=== PATIENT | male | born 1950 | race Caucasian/White ===

== ENCOUNTER 2018-05-01 19:52 | Inpatient (IN) | payer OTHER ==
[2018-05-01 20:40] VITALS: BMI 27.4
--- NOTE | 2018-05-01 21:43 | PDOC ---
History of Present Illness - General Chief Complaint: Shortness of Breath Stated Complaint: DIFFICULTY BREATHING Time Seen by Provider: 05/01/18 21:42 History Source: Patient - History of Present Illness Initial Comments: 05/01/18 21:57 The patient is a 68 year old male with a PMH of COPD (not on home O2, currently smokes 1/2 ppd for >40 years), NIDDM, HTN, HLD, ? cardiomyopathy was BIBA for acute onset of shortness of breath. Patient was sitting at home when he suddenly felt short of breath prompting him to call 911. Denies any associated chest pain, lightheadedness, palpitations as well as fevers/chills. Patient states he had his pacemaker placed because his heart wasn't pumping blood. The patient denies abdominal pain, nausea/vomiting, diarrhea/constipation, dysuria/hematuria. NKDA Surgical: PPM Social: daily cigarettes, denies other toxic habits PMD: Dr. Espinosa Past History - Past Medical History Allergies/Adverse Reactions: Allergies Allergy/AdvReac Type Severity Reaction Status Date / Time No Known Allergies Allergy Verified 05/01/18 20:44 Home Medications: Ambulatory Orders Amlodipine Bes/Olmesartan Med [Tatiana 5-20 mg Tablet] 1 tab PO DAILY #0 tablet 02/05 Atorvastatin Ca [Lipitor] 40 mg PO HS #0 tab 08/01/11 Divalproex *ER* [Depakote *ER* -] 1,500 mg PO DAILY #0 tablet.sa 08/01/11 Esomeprazole Mag Trihydrate [Nexium] 20 mg PO DAILY #0 capsule. 08/01/11 Quetiapine Fumarate "Xr" [Seroquel XR] 300 mg PO BID #0 tablet 08/01/11 Sitagliptin Phos/Metformin HCl [Janumet 50-1,000 mg Tablet] 1 tab PO BIDAC #0 tablet 08/01/11 Aspirin [Ecotrin] 81 mg PO DAILY 05/01/18 Cardiac Disorders: (cardiac stent 5yrs) COPD: Yes (doesn't know what meds he takes) Dementia: (pt's states "he talks to himself" pt states "no problem") Diabetes: Yes GI Disorders: (bleeding ulcer) HTN: Yes Hypercholesterolemia: Yes - Surgical History Cardiac Surgery: (cardiac stent 5 yrs ago) - Suicide/Smoking/Psychosocial Hx Smoking Status: Yes Smoking History: Never smoked Have you smoked in the past 12 months: No Number of Cigarettes Smoked Daily: 4 Cigars Per Day: 4 Information on smoking cessation initiated: No Hx Alcohol Use: No Drug/Substance Use Hx: No Review of Systems - Review of Systems Constitutional: No: Chills, Fever HEENTM: No: Blurred Vision, Double Vision Respiratory: Yes: SOB at Rest Cardiac (ROS): No: Chest Pain, Lightheadedness, Palpitations, Syncope ABD/GI: No: Constipated, Diarrhea, Nausea, Vomiting *Physical Exam - Vital Signs Last Vital Signs Temp Pulse Resp BP Pulse Ox 97.3 F L 83 18 129/65 92 L 05/01/18 20:37 05/01/18 20:37 05/01/18 20:37 05/01/18 20:37 05/01/18 20:40 - Physical Exam General Appearance: Yes: Nourished, Appropriately Dressed HEENT: positive: Hearing Grossly Normal Neck: positive: Trachea midline, Supple Respiratory/Chest: positive: Other (diffuse scattered expiratory wheezes; RLL and R middle lobe crackles) Cardiovascular: positive: S1, S2 Vascular Pulses: Dorsalis-Pedis (R): 2+, Doralis-Pedis (L): 2+ Gastrointestinal/Abdominal: positive: Normal Bowel Sounds, Soft Extremity: positive: Normal Capillary Refill, Normal Inspection Integumentary: positive: Normal Color, Dry, Warm Neurologic: positive: Fully Oriented, Alert Moderate Sedation - Procedure Monitoring Vital Signs: Procedure Monitoring Vital Signs Temperature 97.3 F L 05/01/18 20:37 Pulse Rate 83 05/01/18 20:37 Respiratory Rate 18 05/01/18 20:37 Blood Pressure 129/65 05/01/18 20:37 O2 Sat by Pulse Oximetry (%) 92 L 05/01/18 20:40 ED Treatment Course - LABORATORY CBC & Chemistry Diagram: 05/01/18 23:00 05/01/18 23:00 Medical Decision Making - Medical Decision Making 05/01/18 22:02 68 year old male with acute onset of dyspnea. Frontal diagnosis: COPD exacerbation vs. new onset CHF vs. PNA. Also consider ACS. Will obtain CXR, basic labs, Troponin, ECG. Duo-Neb, Solumedrol. Reassess. 05/01/18 23:23 Hb 7.6 (previous Hb 13 in 2011) FOBT pending No leukocytosis CMP pending Patient reassessed @ bedside, currently receiving Nebulizer Patient receiving Duo Neb Patient signed out to Dr. Peraza (Resident) and Dr. Alonso (Attending) - FOBT, CMP pending, Troponin pending. Likely admit for fluid overload. *DC/Admit/Observation/Transfer Diagnosis at time of Disposition: Anemia - Discharge Dispostion Condition at time of disposition: Fair - Referrals - Patient Instructions - Post Discharge Activity
[2018-05-01] MEDS ORDERED: ALBUTEROL SO4 2.5/IPRATROPIUM 0.5 INH SOL 3 ML VIAL.NEB. NEB ONE ×2 (22:01→23:12)
[2018-05-01] MEDS ORDERED: methylPREDNISolone NA SUCC 125 MG/2 ML VIAL IVPUSH ONE (22:01)
--- NOTE | 2018-05-01 22:29 | PDOC ---
Attending Attestation - HPI HPI: 05/01/18 23:17 05/01/18 23:32 The patient is a 68 year old male with a significant PMH of COPD( no home O2), hypertension, hyperlipidemia, diabetes, and pacemaker who presents to the emergency department with shortness of breath since earlier this evening. The patient reports that he was at home earlier tonight when he began to experience an acute onset of shortness of breath while at rest. He reports some associated dry cough. He denies any chest pain or palpitations. The patient denies any other symptoms. He denies any fever, chills, nausea, vomiting, diarrhea, or urinary symptoms. He denies any headache or dizziness. The patient denies any other complaints. - Physicial Exam PE: 05/01/18 23:17 GENERAL: Awake, alert, and fully oriented, in no acute distress HEAD: No signs of trauma EYES: PERRLA, EOMI, sclera anicteric, conjunctiva clear ENT: Auricles normal inspection, hearing grossly normal, nares patent, oropharynx clear without exudates. Moist mucosa NECK: Normal ROM, supple, no lymphadenopathy, JVD, or masses LUNGS: (+)right mid lobe and right lower lobe crackles.. Breath sounds equal. No wheezing. HEART: Regular rate and rhythm, normal S1 and S2, no murmurs, rubs or gallops ABDOMEN: Soft, nontender, normoactive bowel sounds. No guarding, no rebound. No masses EXTREMITIES: Normal range of motion, no edema. No clubbing or cyanosis. No cords, erythema, or tenderness NEUROLOGICAL: Cranial nerves II through XII grossly intact. Normal speech, normal gait SKIN: Warm, Dry, normal turgor, no rashes or lesions noted. Documentation prepared by Sasha Diallo, acting as hospital medical biller for Lin Alonso MD. <Sasha Diallo - Last Filed: 05/01/18 23:32> - Resident Resident Name: Korina Gotti - ED Attending Attestation I have performed the following: I have examined & evaluated the patient, The case was reviewed & discussed with the resident, I agree w/resident's findings & plan - Medical Decision Making 05/01/18 23:36 Pt has crackles in the right base and right middle lobes. Pt has slight crackles at the left base. He has no fever. He is not wheezing after duoneb. 05/01/18 23:37 Pt has a Hb of 7.6 .. last on file was 13+ in 2011. 05/02/18 00:27 BNP is 14K He will be admitted for CHF exacerbation <Lin Alonso - Last Filed: 05/02/18 19:56>
[2018-05-01 23:12] LABS: BASO % 1.1 % (0-2.0); EOS % 0.5 % (0-4.5); HEMATOCRIT 23.1 % (35.4-49); HEMOGLOBIN 7.6 GM/dL (11.7-16.9); LYMPH % 19.5 % (8-40); MCH 21.3 pg (25.7-33.7); MCHC 32.7 g/dl (32.0-35.9); MEAN CELL VOLUME 65.2 fl (80-96); MEAN PLT VOLUME 8.6 fl (7.5-11.1); MONO % 6.5 % (3.8-10.2); NEUT % 72.4 % (42.8-82.8); PLATELET COUNT 239 K/MM3 (134-434); RBC 3.55 M/mm3 (4.00-5.60); RDW 23.6 % (11.9-15.9); WHITE BLOOD COUNT 5.7 K/mm3 (4.0-10.0)
[2018-05-01] MEDS ORDERED: methylPREDNISolone NA SUCC 125 MG/2 ML VIAL ONE (23:12)
[2018-05-01 23:41] LABS: ANISOCYTOSIS 2+
[2018-05-01 23:47] LABS: ALBUMIN 3.4 g/dl (3.4-5.0); ALK PHOS 101 U/L (45-117); ANION GAP 9 MMOL/L (8-16); BILIRUBIN,TOTAL 0.3 mg/dL (0.2-1); BLOOD UREA NITROGEN 50 mg/dL (7-18); CALCIUM 7.9 mg/dL (8.5-10.1); CHLORIDE 107 mmol/L (98-107); CO2 22 mmol/L (21-32); CREATININE 3.7 mg/dL (0.55-1.3); GLUCOSE,RANDOM 107 mg/dL (74-106); N-TERMINAL BNP 14457.9 pg/ml (5-125); POTASSIUM 5.2 mmol/L (3.5-5.1); SGOT/AST 14 U/L (15-37); SGPT/ALT 20 U/L (13-61); SODIUM 138 mmol/L (136-145); TOT PROT 6.5 g/dl (6.4-8.2)
--- NOTE | 2018-05-02 01:34 | PDOC ---
*Physical Exam - Vital Signs Last Vital Signs Temp Pulse Resp BP Pulse Ox 97.3 F L 83 18 129/65 92 L 05/01/18 20:37 05/01/18 20:37 05/01/18 20:37 05/01/18 20:37 05/01/18 20:40 - Physical Exam Comments: GENERAL: resting in bed HEAD: No signs of trauma, normocephalic, atraumatic EYES: EOMI, sclera anicteric, conjunctiva clear ENT: oropharynx clear without exudates. Moist mucosa NECK: Normal ROM, supple LUNGS: No distress, speaks full sentences, coarse breath sounds and wheeze HEART: Regular rate and rhythm, normal S1 and S2, no murmurs, rubs or gallops, peripheral pulses normal and equal bilaterally. ABDOMEN: Soft, nontender, normoactive bowel sounds. No guarding, no rebound. No masses EXTREMITIES : Normal inspection, Normal range of motion, no edema. No clubbing or cyanosis. NEUROLOGICAL: Cranial nerves II through XII grossly intact. Normal speech, no focal sensorimotor deficits SKIN: Warm, Dry, normal turgor, no rashes or lesions noted ED Treatment Course - LABORATORY CBC & Chemistry Diagram: 05/01/18 23:00 05/01/18 23:00 - ADDITIONAL ORDERS Additional order review: Laboratory Results 05/01/18 05/01/18 05/01/18 23:49 23:00 23:00 Sodium 138 Potassium 5.2 H Chloride 107 Carbon Dioxide 22 Anion Gap 9 BUN 50 H Creatinine 3.7 H Creat Clearance w eGFR 16.52 Random Glucose 107 H Lactic Acid 0.7 Calcium 7.9 L Total Bilirubin 0.3 AST 14 L ALT 20 Alkaline Phosphatase 101 Creatine Kinase 58 Troponin I 0.02 B-Natriuretic Peptide 72620.9 H Total Protein 6.5 Albumin 3.4 Stool Occult Blood Negative 05/01/18 23:00 RBC 3.55 L MCV 65.2 L MCHC 32.7 RDW 23.6 H MPV 8.6 Neutrophils % 72.4 D Lymphocytes % 19.5 D Monocytes % 6.5 Eosinophils % 0.5 Basophils % 1.1 - Medications Given in the ED: ED Medications Discontinued Medications Generic Name Dose Route Start Last Admin Trade Name Freq PRN Reason Stop Dose Admin Albuterol/Ipratropium 1 amp 05/01/18 22:01 05/01/18 23:15 Duoneb - NEB 05/01/18 22:02 1 amp ONCE ONE Administration Methylprednisolone Sodium Succinate 125 mg 05/01/18 22:01 05/01/18 23:15 Solu-Medrol - IVPUSH 05/01/18 22:02 125 mg ONCE ONE Administration Medical Decision Making - Medical Decision Making 05/02/18 01:33 Pt signed out by resident Dr. Gotti In short patient with a history of COPD, NIDDM, HTN, HLD, cardiomyopathy presents with shortness of breath. ED Course Labwork notable for BNP of 17941h, but with BUN of 50 and Cr 3.7, significantly elevated from baseline. Will start patient on bipap, will hold lasix for now considering JAME. CXR: increased pulmonary vascular congestion, slight blunting of R costophrenic angle as read by this web content writer, pending final report. 05/02/18 01:50 Plan to admit patient for further work up and evaluation *DC/Admit/Observation/Transfer Diagnosis at time of Disposition: Anemia - Discharge Dispostion Disposition: AGAINST MEDICAL ADVICE Condition at time of disposition: Fair Decision to Admit order: Yes - Referrals - Patient Instructions - Post Discharge Activity
[2018-05-02 05:42] LABS: ARTERIAL BLOOD GAS BASE EXCESS -5.8 meq/l (-2-2); ARTERIAL BLOOD GAS PCO2 40.7 mmHg (35-45); ARTERIAL BLOOD GAS PO2 91.7 mmHg (80-100); CARBOXYHEMOGLOBIN 2.3 gm% (0.5-2.0)
[2018-05-02 05:45] LABS: ALLENS TEST POSITIVE
[2018-05-02] MEDS ORDERED: sitaGLIPtin PHOSPHATE 50 MG TABLET PO SCH (07:00)
[2018-05-02] MEDS ORDERED: ACETAMINOPHEN 325 MG TABLET (FP) PO PRN (08:52)
[2018-05-02] MEDS ORDERED: ALBUTEROL SO4 2.5/IPRATROPIUM 0.5 INH SOL 3 ML VIAL.NEB. NEB PRN (08:52)
[2018-05-02] MEDS ORDERED: SENNOSIDES 8.6MG TABLET (FP) PO PRN (08:54)
--- NOTE | 2018-05-02 09:01 | HP ---
Admitting History and Physical - Primary Care Physician PCP: Lexy Espinosa - Admission Chief Complaint: SOB. JAME. Anemia. Hyperkalemia History of Present Illness: The patient is a 68 year old male with a PMH of COPD (not on home O2, currently smokes 1/2 ppd for >40 years), NIDDM, HTN, HLD, ? cardiomyopathy was BIBA for acute onset of shortness of breath. Patient was sitting at home when he suddenly felt short of breath prompting him to call 911. Denies any associated chest pain, lightheadedness, palpitations as well as fevers/chills. Patient states he had his pacemaker placed because his heart wasn't pumping blood. The patient denies abdominal pain, nausea/vomiting, diarrhea/constipation, dysuria/hematuria. History Source: Patient, Medical Record Limitations to Obtaining History: No Limitations - Smoking History Smoking history: Never smoked Have you smoked in the past 12 months: No Aproximately how many cigarettes per day: 4 - Alcohol/Substance Use Hx Alcohol Use: No Home Medications - Allergies Allergies/Adverse Reactions: Allergies Allergy/AdvReac Type Severity Reaction Status Date / Time No Known Allergies Allergy Verified 05/01/18 20:44 - Home Medications Home Medications: Ambulatory Orders Amlodipine Bes/Olmesartan Med [Tatiana 5-20 mg Tablet] 1 tab PO DAILY #0 tablet 02/05 Atorvastatin Ca [Lipitor] 40 mg PO HS #0 tab 08/01/11 Divalproex *ER* [Depakote *ER* -] 1,500 mg PO DAILY #0 tablet. 08/01/11 Esomeprazole Mag Trihydrate [Nexium] 20 mg PO DAILY #0 capsule. 08/01/11 Quetiapine Fumarate "Xr" [Seroquel XR] 300 mg PO BID #0 tablet 08/01/11 Sitagliptin Phos/Metformin HCl [Janumet 50-1,000 mg Tablet] 1 tab PO BIDAC #0 tablet 08/01/11 Aspirin [Ecotrin] 81 mg PO DAILY 05/01/18 Physical Examination Vital Signs: Vital Signs Temperature 97.3 F L 05/01/18 20:37 Pulse Rate 76 05/02/18 07:03 Respiratory Rate 18 05/01/18 20:37 Blood Pressure 157/94 05/02/18 07:03 O2 Sat by Pulse Oximetry (%) 98 05/02/18 07:03 Labs: CBC, BMP 05/01/18 23:00 05/01/18 23:00
[2018-05-02] MEDS ORDERED: PANTOPRAZOLE 20 MG TABLET (FP) PO SCH (10:00)
[2018-05-02] MEDS ORDERED: LOSARTAN POTASSIUM 50 MG TABLET (FP) PO SCH (10:00)
[2018-05-02] MEDS ORDERED: amLODIPine BESYLATE 5 MG TABLET (FP) PO SCH (10:00)
[2018-05-02] MEDS ORDERED: ASPIRIN COATED 81 MG TABLET.EC PO SCH (10:00)
[2018-05-02] MEDS ORDERED: DIVALPROEX NA *ER* EXTEND REL 500 MG TABLET.SA (FP) PO SCH (10:00)
[2018-05-02 10:20] VITALS: BP 123/69; PULSE 89; TEMP 97.6
[2018-05-02] MEDS ORDERED: INSULIN SLIDING SCALE (NOVOLOG) 1 VIAL SQ SCH (11:00)
[2018-05-02] MEDS ORDERED: metFORMIN HCL 500 MG TABLET (FP) PO SCH (16:30)
[2018-05-02] MEDS ORDERED: ATORVASTATIN CA 80 MG TABLET (FP) PO SCH (22:00)
[2018-05-03] MEDS ORDERED: ATORVASTATIN CA 40 MG TABLET (FP) PO SCH (22:00)
== END 2018-05-02 10:30 | disposition left against medical advice (07) | DRG 812 ==
LOC: JER 19:52 → JERBED 05-02 06:50
PROVIDERS: ADMIT Internal Medicine; ATTEND Family Medicine
DX: D64.9 Anemia, unspecified (principal); I42.9 Cardiomyopathy, unspecified; E11.9 Type 2 diabetes mellitus without complications; I10 Essential (primary) hypertension; E78.5 Hyperlipidemia, unspecified; F17.210 Nicotine dependence, cigarettes, uncomplicated; I50.9 Heart failure, unspecified
CPT/HCPCS: 36415; 36600; 71046-TC-FY; 80053; 82272; 82375; 82550; 82803; 83050; 83605; 83880; 84484; 85025; 87040; 99284-25